=== PATIENT | male | born 1965 | race Two or more races ===

== ENCOUNTER 2017-01-16 11:56 | Day surgery (SDC) | payer BC, OTHER ==
[2017-01-16] MEDS ORDERED: LACTATED RINGERS 1,000 ML ONE (12:22)
[2017-01-16] MEDS ORDERED: IV START KIT ONE (12:22)
[2017-01-16] MEDS ORDERED: FENTANYL 100 MCG/2 ML VIAL ONE (13:06)
[2017-01-16] MEDS ORDERED: LACTATED RINGERS 1,000 ML IV SCH (13:45)
[2017-01-16] MEDS ORDERED: PROPOFOL 20 ML IV ONE (14:33)
--- NOTE | 2017-01-20 13:00 | SURGPATH ---
[facility] [address] [place] [id number] Patient Name: NINI PRESSLEY MR#: [id number] : 1965 Gender: M Specimen #: [id number] Collected: 01/16/2017 Received: 01/19/2017 Reported: 01/20/2017 Submitting Phys: EVERTON DILLON Copy To Phys: [facility] KONSTANTIN BULLARD Clinical History / Pre-Operative Diagnosis: Screening colonoscopy Specimen Source / Surgical Procedure Performed: Sigmoid colon polyp biopsy x2 Interpretation: SIGMOID COLON, POLYP, BIOPSY: - HYPERPLASTIC POLYP Electronically Signed Out Ihsan Brandt M.D. Gross Description: The specimen is received in formalin labeled with the patient's name and "sigmoid colon polyp biopsy". The specimen consists of two fragments of hernández soft tissue, 0.7 x 0.3 x 0.2 cm in aggregate. Submitted in toto in one cassette. ED Trammell Microscopic Description: Levels reveal colonic mucosa surfaced by tubular glands with focal hyperplastic features. Adenomatous and malignant features are not present. 1: 26705 K63.5
== END 2017-01-16 15:15 | disposition home or self-care (01) ==
LOC: SDC 11:56
PROVIDERS: ATTEND Surgery
PROC: 0DBN8ZX Excision of Sigmoid Colon, Via Natural or Artificial Opening Endoscopic, Diagnostic (ICD-10-PCS; principal; 2017-01-16)
DX: Z12.11 Encounter for screening for malignant neoplasm of colon (principal); K63.5 Polyp of colon; K57.30 Diverticulosis of large intestine without perforation or abscess without bleeding; K42.0 Umbilical hernia with obstruction, without gangrene; Z79.82 Long term (current) use of aspirin
CPT/HCPCS: 45380; J3010; J7120